=== PATIENT | female | born 1995 | race Two or more races ===

== ENCOUNTER 2018-02-07 16:02 | Emergency (ER) | payer MEDICAID ==
[~2018-02-07] VITALS: Ht 157.5 cm; Wt 65.6 kg
[2018-02-07 16:03] VITALS: BP 112/74
[2018-02-07] MEDS ORDERED: SODIUM CHLORIDE 0.9% 1,000ML IVBOLUS ONE (16:30)
[2018-02-07] MEDS ORDERED: METOCLOPRAMIDE 10MG TABLET PO ONE (16:30)
[2018-02-07] MEDS ORDERED: METOCLOPRAMIDE 5 MG/ML, 2ML IVPush ONE (16:30)
[2018-02-07] MEDS ORDERED: SODIUM CHLORIDE FLUSH 10ML SYR IVF ONE (16:30)
[2018-02-07] MEDS ORDERED: DIPHENHYDRAMINE 50 MG/ML, 1ML IVPush ONE (16:30)
[2018-02-07] MEDS ORDERED: DIPHENHYDRAMINE 50 MG/ML, 1ML IM ONE (16:30)
[2018-02-07] MEDS ORDERED: DIPHENHYDRAMINE 50 MG/ML, 1ML ONE (16:47)
[2018-02-07] MEDS ORDERED: METOCLOPRAMIDE 5 MG/ML, 2ML ONE (16:47)
== END 2018-02-07 18:51 | disposition home or self-care (01) ==
LOC: ED 17:05
DX: G43.C0 Periodic headache syndromes in child or adult, not intractable (principal)
CPT/HCPCS: 96374; 96375; 99284; J1200; J2765; J7030